=== PATIENT | male | born 2000 | race Caucasian/White ===

== ENCOUNTER → 2023-10-01 | Outpatient (CLI) | payer OTHER ==
--- NOTE | 2023-10-01 15:54 | XR ---
EXAMINATION TYPE: XR chest 2V DATE OF EXAM: 10/01/2023 COMPARISON: None INDICATION: Lifting strain TECHNIQUE: Frontal and lateral views of the chest are obtained. FINDINGS: The heart size is normal. The pulmonary vasculature is normal. The lungs are clear. Osseous structures appear intact. IMPRESSION: 1. No acute pulmonary process.
--- NOTE | 2023-10-01 15:55 | XR ---
EXAMINATION TYPE: XR shoulder complete LT DATE OF EXAM: 10/01/2023 COMPARISON: NONE HISTORY: Pain TECHNIQUE: Left Shoulder examined in 3 projections. FINDINGS: The humeral head articulates with the glenoid. The acromio-clavicular junction is normal. No acute fractures or dislocations are evident. Joint spaces are preserved. A follow up study can be performed 7-10 days from acute trauma for continued pain. MRI can be perfor med if soft tissue evaluation would be of benefit. IMPRESSION: 1. No acute osseous left shoulder abnormality.
== END | disposition home or self-care (01) ==
LOC: RADXRMAIN 15:30
PROVIDERS: ATTEND Emergency Medicine
DX: S46.912A Strain of unspecified muscle, fascia and tendon at shoulder and upper arm level, left arm, initial encounter (principal); S29.001A Unspecified injury of muscle and tendon of front wall of thorax, initial encounter
CPT/HCPCS: 71046

== ENCOUNTER → 2023-10-09 | Outpatient (CLI) | payer OTHER ==
--- NOTE | 2023-10-09 21:51 | MR ---
EXAMINATION TYPE: MR shoulder LT wo con DATE OF EXAM: 10/09/2023 COMPARISON: None HISTORY: Left shoulder pain due to injury at work TECHNIQUE: Multiplanar, multisequence imaging of the left shoulder is performed without contrast. FINDINGS: There is no bone contusion or fracture. There is no significant degeneration of the AC joint or gleno humeral joint and there is no shoulder impingement. There is no tear of the rotator cuff. There is mild tendinosis of the infraspinatus tendon. The biceps tendon is normal in signal intensity and position within the bicipital groove and the denisha ps anchor is intact. There is a small tear in the superior cartilaginous labrum consistent with a SLA P injury. There is no subcutaneous acromial or subdeltoid bursitis. IMPRESSION: 1. No definite rotator cuff tear. Possible mild tendinosis of the infraspinatus tendon. 2. SLAP injury
== END | disposition home or self-care (01) ==
LOC: RADMRIMAIN 21:15
PROVIDERS: ATTEND Emergency Medicine
DX: S46.912D Strain of unspecified muscle, fascia and tendon at shoulder and upper arm level, left arm, subsequent encounter (principal); S29.001D Unspecified injury of muscle and tendon of front wall of thorax, subsequent encounter; X58.XXXD Exposure to other specified factors, subsequent encounter; Y99.0 Civilian activity done for income or pay